=== PATIENT | female | born 1970 | race Caucasian/White ===

== ENCOUNTER 2020-03-06 14:50 | Outpatient (RCR) | payer OTHER, SELFPAY ==
--- NOTE | 2020-03-06 16:34 | PTOPEVAL ---
PHYSICAL THERAPY EVALUATION Thank you for referring Francia Schilling to [facility]. No follow up is planned at this time. I want to discuss findings with Aditi Sierra PT in regards to further care. If follow up treatment is needed, I will formulate a treatment plan of care and send it to you. I agree with the evaluation and above information. Referring Physician Date Admitting Provider: Attending Provider: Kilo Auguste, Referring Provider: *PT Outpatient Evaluation Start: 03/06/20 15:04 Freq: Status: Active Protocol: Document 03/06/20 15:05 CESIA (Rec: 03/06/20 16:33 CESIA [id number]) Therapy Assessment Status Assessment Status Assessment Status Evaluation Outpatient Past Medical History Past Medical History Source of Past Medical History Patient Neurological History Hx Neurological Disorders No Significant History Cardiovascular History Hx Cardiac Disorders No Significant History Respiratory History Hx Other Respiratory Disorders Yes: seasonal allergies Gastrointestinal History Hx Gastrointestinal Disorders No Significant History Genitourinary History Hx Genitourinary Disorders No Significant History Musculoskeletal History Hx Fractures Yes: finger Hx Orthopedic Surgery Yes: R RTC,biceps tears s/p 2 surgeries;R knee scope Endocrine History Hx Endocrine Disorders No Significant History Other History Hx Other Medical Conditions Yes: vocal cord disorder Evaluation Information Problem Diagnosis dizziness Onset couple of months ago - worsening Subjective Information when walking - will begin to Query Text:As Reported By Patient/ deviate to the R side - has Family fallen a couple of times to the R can happen at any time worse when lights are off and it is dark No difficulties with driving, sitting [place] train [place] 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 Home Meds Must Be Re-entered With Each Visit. Comments Additional Prior Level of Function recreation - horse back riding Comments
--- NOTE | 2020-04-15 09:12 | PCPTNOTE ---
PHYSICAL THERAPY DISCHARGE NOTE Admitting Provider: Attending Provider: Kilo Auguste, Patient:Francia Schilling Date of :1970 Francia was only seen for her initial visit on 03/06/2020. I was able to speak with Aditi Sierra, PT in regards to PT for follow up care and exercise with Francia. When phoned on 03/14/20, Francia stated that she was going to go see a specialist in regards to loss of hearing in her ear. I did describe further advanced activities that she could practice at home to further reduce dizziness when in a darker lit room. She has not called to schedule any further PT. Thank you for referring Francia to [facility]. Please review, sign, date and return this discharge summary SHERI. I have been updated about Francia's current status and I agree with discharge from the above service at this time. Referring Physician Date
== END 2020-04-25 09:40 | disposition home or self-care (01) ==
LOC: ANHHIPT 14:50
PROVIDERS: PCP Internal Medicine; Visit Provider Internal Medicine
DX: R42 Dizziness and giddiness (principal)
CPT/HCPCS: 97162

== ENCOUNTER 2023-04-02 15:00 | Outpatient (RCR) | payer OTHER, SELFPAY ==
--- NOTE | 2023-02-02 15:58 | PTOPEVAL1 ---
Assessment and note entered by Enma Vazquez, PT Evaluation Information Assessment Status Evaluation Diagnosis Dizziness and Giddiness Therapy condition Stiffness unspec. Joint, unsteadiness on feet Onset 3 years Subjective Information Vestibular previously multiple years Reports has had therapy for BPPV in the past but this doesn't feel the same. Last time did therapy for BPPV was 2 years, no resolution of symptoms Reported Pain Level Pain Score 0: Self Report Assessment PT Clinical Summary Pt presents with diagnosis of dizzienss and giddiness. 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 She reports this has been persistent for multiple years, and notes has increased difficulty in darkness and with movement at times. Evaluation shows negative vertebral artery testing, negative Tanner-Hallpike testing, reports family history of Meniere's disease, and shoes definite deficits in static balance especially with eyes closed activity suggestive of inner ear deficits. However she also reports increased symptoms with passive cervical rotation bilat, palpation of suboccipital muscles, and with Spring test in upper cervical spine. Evaluation suggestive of cervicogenic vertigo but patient was also advised to follow up with her ENT and primary provider to rule out Meniere's Dz and sleep apnea. Plan of Care Interventions Electrical Stimulation,Hot Pack/Cold Pack,Manual Therapy,Mechanical Traction,Neuro Re-education, Therapeutic Activities,Therapeutic Exercise PT Services Indicated Yes Treatment Frequency and 2x weekly x 4 weeks or 8 visits Duration These treatments will address the objective and functional deficits as defined above. The patient will be advanced safely and appropriately in order for the patient to progress towards his/her prior level of function. Additional exercises will be introduced and as well as a comprehensive home exercise program upon discharge, if needed, ?to ensure carryover of functional gains achieved in the clinic. This treatment plan has been reviewed and agreement upon by the patient.
--- NOTE | 2023-02-02 16:01 | OPREHPOC ---
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
--- NOTE | 2023-02-26 14:22 | PTOPPROG ---
Assessment and note entered by Enma Vazquez, PT Assessment Status Progress Report Diagnosis Dizziness and Giddiness - cervicogenic Onset 3 years Subjective Information Has an eye appointment next week, trying to get into ENT. When did traction last session thinks this was helpful. Thinks dizziness got better at first but wasn't able to attend therapy for 2 weeks and the last 3 days is worse again. Trend has noticed is the dizziness worsens later in the day. Reports has been able to monitor and correct her posture some Assessment PT Clinical Summary Pt has had minimal therapeutic intervention secondary to her work schedule. Noted traction seemed to make her feel better, had less overall symptoms for multiple days until last few days. Demo's improved resting muscle tone of upper traps bilat and pt reports improved ability to maintain postures through the day. Pt cont to demo decreased AROM cervical spine and thoracic spine, cont to have dizziness symptoms likely cervicogenic in nature. Will benefit from continued therapy to continue improvements and improve quality of life. Plan of Care Interventions Electrical Stimulation,Hot Pack/Cold Pack,Manual Therapy,Mechanical Traction,Neuro Re-education, Patient/Caregiver Educati,Therapeutic Activities, Therapeutic Exercise,Self-Care/Home Management, Ultrasound PT Services Indicated Yes Treatment Frequency and 1-2x weekly x 4 weeks Duration These treatments will address the objective and functional deficits as defined above. The patient will be advanced safely and appropriately in order for the patient to progress towards his/her prior level of function. Additional exercises will be introduced and as well as a comprehensive home exercise program upon discharge, if needed, ?to ensure carryover of functional gains achieved in the clinic. This treatment plan has been reviewed and agreement upon by the patient.
--- NOTE | 2023-02-26 14:23 | OPREHPOC ---
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
--- NOTE | 2023-03-24 10:24 | PCPTNOTE ---
Patient called & cancelled scheduled appointment this date due to a in the family. Pt attempted to reschedule but no times were available due to clinic capacity. Advised if were any cancellations, would call patient and attempt to reschedule.
--- NOTE | 2023-04-02 16:10 | PTOPDC ---
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 Pt hasn't been able to get back into ENT to r/o Meniere's disease Pt reports has not had any improvement in her dizziness, cont to have dizziness at work and with turning her head. will get relief from traction for a day but then dizziness returns. Reported Pain Level Pain Score 0: Self Report Assessment PT Clinical Summary Pt has attended 8 visits of therapy. Unfortunately was not able to attend consistently due to work schedule and outside factors. Pt reported temporary relief with cervical traction however due to inconsistency of schedule, therapy was unable to ascertain if would be beneficial over time without consistent use. Pt has not shown improvement in cervical ROM, resting muscle tone, or balance since last progress note. Pt has been to eye doctor who has suggested neurology consult due to optic nerve inflammation. Pt also has family history of Meniere's disease which has not been ruled out yet. Pt was educated on these options, and provided a final home exercise program. Pt is thus being discharged from therapy due to lack of improvement.
== END 2023-04-02 16:20 | disposition home or self-care (01) ==
LOC: ANHHIPT 15:00
PROVIDERS: PCP Family Medicine; Visit Provider Physician Assistant Medical
DX: M54.50 Low back pain, unspecified (principal); M25.551 Pain in right hip; M25.552 Pain in left hip; G89.29 Other chronic pain
CPT/HCPCS: 97012; 97014; 97110; 97140; 97161; 97530; G0283